=== PATIENT | male | born 1965 | race Caucasian/White ===

== ENCOUNTER 2016-06-20 11:56 | Emergency (ER) | payer OTHER ==
[~2016-06-20] VITALS: Ht 170.2 cm; Wt 110.3 kg
[~2016-06-20 11:56] MED LIST: BACTRIM,SEPT1 TABLET PO; KENALOG,ARISTOC80 GM TP; MOTRIN800 MG PO; PEN-VEE K,VEET500 MG PO; PRINIVIL5 MG PO
[2016-06-20 12:59] LABS: EOSINOPHIL (%) 0.3 % (0-5); HEMATOCRIT 49.3 % (38.0-50.0); IMMATURE GRANULOCYTE (%) 0.3 % (0.0-0.7); INSTRUMENT ABS NEUTROPHIL CT 6.3 K/uL; LYMPHOCYTE COUNT 1.6 K/uL (1.0-2.8); MCH 29.2 PG (29.0-34.0); MCHC 33.5 G/DL (30.0-36.0); MCV 87.1 FL (86-99); MEAN PLAT.VOLUME 9.5 uM^3 (9.0-12.4); MONOCYTE (%) 7.3 % (3-12); MONOCYTE COUNT 0.6 K/uL (0-0.8); NEUTROPHIL (%) 73.1 % (45-76); NEUTROPHIL COUNT 6.3 K/uL (1.8-6.4); PLATELET COUNT 168 K/uL (156-360); RBC DIS.WIDTH-CV 12.7 % (11.8-14.6); RBC DIS.WIDTH-SD 40.3 % (39-53); RED BLOOD COUNT 5.66 M/uL (4.00-5.50); WHITE BLOOD COUNT 8.7 K/uL (4.1-10.2)
[2016-06-20 13:09] LABS: CHLORIDE 103 mEq/L (99-109); POTASSIUM 4.6 mEq/L (3.7-5.4); SODIUM 139 mEq/L (136-147)
[2016-06-20 13:10] LABS: GLUCOSE 94 mg/dL (70-99)
[2016-06-20 13:12] LABS: ANION GAP 10 MEQ/L (2-14)
[2016-06-20 13:14] LABS: GFR ESTIMATE (CALCULATED) > 59 mL/min/
[2016-06-20 13:15] LABS: UREA NITROGEN (BUN) 11 mg/dL (9-23)
[2016-06-20 15:47] VITALS: BP 160/89
== END 2016-06-20 15:48 | disposition home or self-care (01) ==
LOC: EME 11:56
PROVIDERS: Emergency Medicine
DX: R53.1 Weakness (principal); R53.83 Other fatigue; D17.0 Benign lipomatous neoplasm of skin and subcutaneous tissue of head, face and neck; I10 Essential (primary) hypertension
CPT/HCPCS: 70450; 80048; 85025; 99281; 99284

== ENCOUNTER 2016-07-23 16:50 | Emergency (ER) | payer OTHER ==
[~2016-07-23] VITALS: Ht 170.2 cm; Wt 108.7 kg
[2016-07-23 17:34] LABS: HEMATOCRIT 45.4 % (38.0-50.0); MCH 29.7 PG (29.0-34.0); MCHC 34.4 G/DL (30.0-36.0); MCV 86.3 FL (86-99); MEAN PLAT.VOLUME 9.3 uM^3 (9.0-12.4); PLATELET COUNT 148 K/uL (156-360); RBC DIS.WIDTH-CV 12.8 % (11.8-14.6); RBC DIS.WIDTH-SD 39.9 % (39-53); RED BLOOD COUNT 5.26 M/uL (4.00-5.50); WHITE BLOOD COUNT 10.2 K/uL (4.1-10.2)
[2016-07-23 17:44] LABS: CHLORIDE 104 mEq/L (99-109); POTASSIUM 3.8 mEq/L (3.7-5.4); SODIUM 138 mEq/L (136-147)
[2016-07-23 17:45] LABS: GLUCOSE 119 mg/dL (70-99)
[2016-07-23 17:47] LABS: ANION GAP 11 MEQ/L (2-14)
[2016-07-23 17:49] LABS: GFR ESTIMATE (CALCULATED) > 59 mL/min/
[2016-07-23 17:50] LABS: UREA NITROGEN (BUN) 10 mg/dL (9-23)
[2016-07-23 17:52] LABS: CREATINE KINASE 124 IU/L (1-294)
[2016-07-23 18:22] LABS: ERTH.SED.RATE 5 MM/HR (0-20)
[2016-07-23] MEDS ORDERED: MOTRIN800 MG PO (18:33)
[2016-07-23] MEDS ORDERED: PREDNISONE20 MG PO (18:33)
[2016-07-23] MEDS ORDERED: VALIUM5 MG PO (18:34)
[2016-07-23 19:08] VITALS: BP 124/78
== END 2016-07-23 19:09 | disposition home or self-care (01) ==
LOC: EME 16:50
PROVIDERS: Physician Assistant
DX: M19.011 Primary osteoarthritis, right shoulder (principal); M19.012 Primary osteoarthritis, left shoulder; S86.911A Strain of unspecified muscle(s) and tendon(s) at lower leg level, right leg, initial encounter; S86.912A Strain of unspecified muscle(s) and tendon(s) at lower leg level, left leg, initial encounter
CPT/HCPCS: 80048; 82550; 85027; 85651; 99281; 99284; J7512